=== PATIENT | female | born 1990 | race Caucasian/White ===

== ENCOUNTER 2019-01-09 11:07 | Inpatient (IN) ==
[2019-01-09] MEDS ORDERED: G.I. COCKTAIL PO ONE (11:49)
[2019-01-09] MEDS ORDERED: NS 1,000 ML IV ONE (11:49)
[2019-01-09] MEDS ORDERED: ZOFRAN IV ONE (11:49)
[2019-01-09] MEDS ORDERED: PROTONIX IV ONE (11:49)
[2019-01-09] MEDS ORDERED: SODIUM CHLORIDE 0.9% INJ ONE ×2 (11:50→12:54)
[2019-01-09 11:51] LABS: BASO# 0.03 X1000 (0.0-0.2); BASO% 0.5 % (0.0-0.8); EOS# 0.18 X1000 (0.0-0.7); EOS% 2.9 % (0.0-10.0); HEMATOCRIT 49.5 % (37.0-47.0); HEMOGLOBIN 16.4 g/dL (12.0-16.0); LYMPH# 1.61 X1000 (1.2-3.4); LYMPH% 25.9 % (20.5-51.1); MCH 29.4 PG (27-31); MCHC 33.1 g/dL (33-37); MCV 88.7 FL (81-99); MONO# 0.81 X1000 (0.11-0.59); NEUT# 3.59 X1000 (1.4-6.5); NEUT% 57.7 % (42.2-75.2); PLT 413 X1000 (130-400); RBC 5.58 XMIL (4.2-5.4); RDW 14.3 % (11.5-14.5); WBC 6.22 X1000 (4.8-10.8)
[2019-01-09 12:10] LABS: URINE SOURCE CLEAN CATCH
[2019-01-09 12:13] LABS: BILIRUBIN URINE MODERATE (NEGATIVE); BLOOD URINE NEGATIVE (NEGATIVE); COLOR YELLOW; GLUCOSE URINE NEGATIVE (NEGATIVE); KETONE URINE 40 mg/dL (NEGATIVE); LEUKOCYTES URINE NEGATIVE (NEGATIVE); NITRITE URINE NEGATIVE (NEGATIVE); PROTEIN URINE 100 mg/dL (NEGATIVE); SP GRAVITY URINE 1.027; TURBIDITY URINE HAZY (CLEAR); UROBILINOGEN URINE 4 mg/dL (NORMAL)
[2019-01-09 12:14] LABS: UR EPITHELIAL CELLS >10 /HPF (<10); URINE BACTERIA 1+ /HPF; URINE RBC <10 /HPF (<10)
[2019-01-09 12:21] LABS: AGAP 20; ALB/GLOB RATIO 2.3; ALBUMIN 5.6 g/dL (3.5-5.0); ALKALINE PHOSPHATASE 56 U/L (32-104); BUN 18 mg/dL (8-22); CALCIUM 11.2 mg/dL (8.8-10.2); CHLORIDE 97 mmol/L (98-107); COSMO 283; ESTIMATED GFR > 60; GLUCOSE 101 mg/dL (70-104); GOT 13 U/L (10-30); GPT 8 U/L (10-36); POTASSIUM 4.1 mmol/L (3.5-5.1); SODIUM 141 mmol/L (136-145); TCO2 24 mmol/L (25-35); TOTAL BILIRUBIN 1.07 mg/dL (0.20-1.00)
--- NOTE | 2019-01-09 12:56 | Diag Imaging Result Doc PS360 ---
EXAM: US GB < RUQ (LIMITED) INDICATION: RUQ and epigastric tenderness COMPARISON: None. FINDINGS: There are a few tiny echogenic foci that appear to be adherent to the gallbladder wall exhibiting no shadowing. They probably represent small gallbladder wall polyps. The largest measures up to 4.6 mm. No shadowing stones are identified. There is no evidence of gallbladder wall thickening or pericholecystic fluid. The common bile duct is normal in diameter. Sonographic Almonte's sign was reported to be negative. The liver is grossly unremarkable. Portal venous flow is hepatopetal. The visualized pancreas is unremarkable. The aorta and IVC are grossly unremarkable. The right kidney is grossly unremarkable. IMPRESSION: A few tiny nonshadowing echogenic foci adherent to the gallbladder wall suggesting tiny polyps as described. Unremarkable right upper quadrant ultrasound, otherwise. Electronically signed by Kyaw Davis 01/09/2019 12:54 PM
--- NOTE | 2019-01-09 12:59 | Diag Imaging Result Doc PS360 ---
EXAM: CHEST-2 VIEWS INDICATION: RUQ tenderness, TECHNIQUE: 2 views COMPARISON: 11/12/2018 FINDINGS: The lungs are grossly clear. There is no discrete pleural fluid collection or pneumothorax. The cardiomediastinal silhouette and central vasculature are grossly unremarkable. IMPRESSION: No evidence of acute pathology by plain radiograph. Electronically signed by Kyaw Davis 01/09/2019 12:57 PM
[2019-01-09] MEDS: PROTONIX IV SCH (13:00)
--- NOTE | 2019-01-09 13:33 | PROVIDER DOCUMENTATION ---
This chart was entered by Britt Guerra Scribe, acting as scribe for Makeda Flores MD. HPI-Abdominal Pain/GI Problem - General Chief Complaint: Epigastric Pain Stated Complaint: DR. COOMBS REFERRAL Time Seen by Provider: 01/09/19 11:20 Source: patient, family, RN/MD (dr coombs called and spoke with er dr MCGRATH of pt) Allergies/Adverse Reactions: Patient Allergies Allergy/AdvReac Type Severity Reaction Status Date / Time No Known Allergies Allergy Verified 01/09/19 11:17 Home Medications: Home Medication List Medication Instructions Recorded Confirmed Last Taken Type NK [No Home Medications] 01/09/19 01/09/19 Unknown History - History of Present Illness-ABD Nature of Presenting Problems: 28 yobf presents to the ed with c/o epigastric/RLQ pain acute onset 11/11/18 with n/v. pt has constipation for 5 days. pt on exam is in moderated distress and has severe nausea. pt is tearful and guarding her epigastrium region. pt went to se her pcp this am and was sent to ed for work up. pt father sts has been to 4 er visits since onset and they still feel like they have no true answer. Abdominal Pain Onset Location: reports: epigastric Pain Radiation: reports: RLQ Quality of Pain: reports: aching, burning, dull Severity in ED: reports: severe Onset/Duration: reports: other (original onset 11/11/18 but this episode ahs been for 1 week) Timing: reports: still present, intermittent, getting worse Activities at Onset: reports: light activity Exposure to sick contacts?: No Modifying Factors: worse with: eating, lying down, palpation, vomiting Associated Symptoms: reports: constipation, headaches, loss of appetite, nausea, vomiting. denies: back/neck pain, diarrhea, fever/chills, shortness of breath Last BM: 5 days ago Dark Stools Present?: reports: none noticed Rectal Bleeding: reports: none # of Diarrhea Episodes: 0 Rectal Pain: reports: none # of Vomiting Episodes: 2 Bruising or Bleeding Gums?: No Similar Symptoms Previously?: Yes Recently seen or treated by another doctor?: Yes (bernarda PCP and x4 ed visits) Review of Systems - Adult - REVIEW OF SYSTEMS - ADULT ROS:: ROS per family (father helps pt) Constitutional: denies: chills, fever Eyes: reports: no symptoms reported Ears, Nose, Mouth & Throat: reports: no symptoms reported Cardiovascular: denies: chest pain, palpitations Respiratory: denies: cough, shortness of breath, wheezing Gastrointestinal: reports: see HPI, abdominal pain, constipation, nausea, poor appetite, vomiting. denies: difficulty swallowing, rectal bleeding Genitourinary: denies: dysuria, frequent UTI's Musculoskeletal: denies: back pain, neck pain Integumentary: reports: no symptoms reported Neurological: reports: see HPI, headache/migraines. denies: dizziness/vertigo Psychiatric: reports: no symptoms reported Endocrine: reports: no symptoms reported Hematologic/Lymphatic: reports: no symptoms reported Allergic/Immunologic: reports: no symptoms reported All Other Systems: Reviewed and Negative Past History - Adult - PAST MEDICAL HISTORY-ADULT Review of Records: reports: Old Records Reviewed, Nursing Assessment Review, Medications Reviewed, Social history reviewed & non-contributory. Major Childhood Illnesses: reports: denies history Cardiovascular: reports: denies history Respiratory: reports: denies history Gastrointestinal: reports: denies history Obstetrical/Gynecological: reports: denies history Genitourinary: reports: denies history Musculoskeletal: reports: denies history Neurological: reports: denies history Endocrine/Immune: reports: denies history Other Conditions: reports: denies history - PRIOR SURGERIES/PROCEDURES Surgical/Procedure History: reports: none - IMMUNIZATION STATUS Childhood Immunizations: See Nurse Assessment Flu Vaccine: See Nurse Assessment - FAMILY HISTORY Family History: reviewed, not pertinent - SOCIAL HISTORY Smoking: quit greater than 1 year Substance Use: denies Alcohol Use Frequency: never Living Situation: family Physical Exam-General - PHYSICAL EXAM-ADULT Initial Vital Signs Reviewed: Yes - CONSTITUTIONAL General Appearance: appears well, alert, moderate distress, thin - EYES Eyes: PERRL/EOMI, pale conjunctivae - HEAD, EARS, NOSE, MOUTH & THROAT HENMT: negative: moist mucous membranes - NECK Neck: non-tender, full range of motion, supple - RESPIRATORY Respiratory: chest non-tender, lungs clear, normal breath sounds - CARDIOVASCULAR Cardiovascular: normal peripheral pulses, regular rate, rhythm - GASTROINTESTINAL (ABDOMEN) Abdominal Exam: soft, guarding, tenderness (RLQ and epigastric), Almonte's sign. negative: distended - LYMPHATIC Lymphatic: no adenopathy - MUSCULOSKELETAL Back Exam: normal inspection, no CVA tenderness, no vertebral tenderness Extremity: normal range of motion, non-tender, normal inspection, normal capillary refill - SKIN Integumentary: normal color, normal turgor, warm/dry - NEUROLOGIC Neurologic: grossly normal - PSYCHIATRIC Psych/Mental Status: normal mood/affect, normal thought content, normal thought process, oriented x 3 Progress - PLAN OF CARE/RESULTS Progress/Plan/Lab Results: Vital Signs - 8 hr 01/09/19 11:12 Temperature 97.5 F L Pulse Rate 95 H Respiratory Rate 18 Blood Pressure 111/86 O2 Sat by Pulse Oximetry 98 Orders Category Date Time Status CHEST-2 VIEWS [RAD] Stat Exams 01/09/19 11:12 Ordered CBC WITH ELECTRONIC DIFF [HEME] Stat Lab 01/09/19 11:40 Ordered COMPREHENSIVE METABOLIC PANEL [CHEM] Stat Lab 01/09/19 11:40 Ordered D-DIMER [COAG] Stat Lab 01/09/19 11:40 Ordered TROPONIN T Stat Lab 01/09/19 11:40 Ordered UA NIMS W/REFLEX CULT [URINALYSIS] Stat Lab 01/09/19 11:11 Uncollected Result Diagrams: 01/09/19 11:38 01/09/19 11:38 - REASSESSMENT Reassessment #1 Time Reassessed: 12:55 (sx unchanged GI at [facility] with ED physcian) Status: unchanged (was at bedside and spoke with GI dr cheng.would like pt admitted to [facility] and will see GI tomorrow) - EKG 1 Time of EKG reading by physician:: 12:08 EKG Read and Signed by:: Makeda Flores EKG Interpretation (*Must complete 3 of following elements*): Normal (borderline) Rate: 85 Rhythm: nsr [place]: normal QRS: normal IA Interval: normal ST Wave: normal Comments: right atrial enlargement - XRAY 1 XRAY: Bilateral XRAY Study: Chest Impression: See EMR Report - ULTRASOUND (By Radiology) 1 US Study: Gallbladder Impression: See EMR Report (EXAM: US GB < RUQ (LIMITED) INDICATION: RUQ and epigastric tenderness COMPARISON: None. FINDINGS: There are a few tiny echogenic foci that appear to be adherent to the gallbladder wall exhibiting no shadowing. They probably represent small gallbladder wall polyps. The largest measures up to 4.6 mm. No shadowing stones are identified. There is no evidence of gallbladder wall thickening or pericholecystic fluid. The common bile duct is normal in diameter. Sonographic Almonte's sign was reported to be negative. The liver is grossly unremarkable. Portal venous flow is hepatopetal. The visualized pancreas is unremarkable. The aorta and IVC are grossly unremarkable. The right kidney is grossly unremarkable. IMPRESSION: A few tiny nonshadowing echogenic foci adherent to the gallbladder wall suggesting tiny polyps as described. Unremarkable right upper quadrant ultrasound, otherwise. Electronically signed by Kyaw Davis 01/09/2019 12:54 PM 01/09/19 1254 Interp reting Physician: Kyaw Davis MD Dictated Date/Time: 01/09/19 1249 cc: Makeda Flores MD; Chase Coombs Jr, MD) - CONSULTS/PCP/HOSPITALIST Notification #1 *Consult/PCP/Hospitalist*: hospitalist Time Discussed: 13:35 Consult Disposition: Admit #2 Consult: dr Cheng Consult Disposition: other (was at bedside, advised admission to hospitalist. Will consider Upper GI endoscopy if US gall bladder normal) Departure - Departure Date of Disposition Decision: 01/09/19 Time of Disposition Decision: 15:45 DIAGNOSIS: Abdominal pain, Epigastric pain, Nausea and vomiting Disposition: ADMITTED INPATIENT 09 Certified Medical Emergency: Emergent Condition: Stable - Critical Care Note This patient required my direct & personal management of CC.: No Attestation - Physician/ BRENDAN Attestation Patient care was provided by Advanced Practice Provider:: No The physician spent face to face time with patient:: Yes Advanced Practice Provider documentation review:: Supervising physician onsite and consulted in the evaluation and care of this patient. The physician did have a face to face encounter with the patient. This chart was documented by the indicated scribe, (Britt Guerra Scribe) and accurately reflects the services I performed and decisions made by me, Makeda Flores MD, as attested by the provider's signature.
[2019-01-09] MEDS ORDERED: TYLENOL PO PRN (14:03)
[2019-01-09] MEDS ORDERED: ZOFRAN IV PRN (14:03)
--- NOTE | 2019-01-09 15:04 | EKG Report ---
Test Performed on : 01/09/2019 12:08:16 PM Test Reason : ED. No order in [place] Blood Pressure : / mmHG Vent. Rate : 085 BPM Atrial Rate : 085 BPM P-R Int : 116 ms QRS Dur : 076 ms QT Int : 350 ms P-R-T Axes : 080 070 057 degrees QTc Int : 416 ms Normal sinus rhythm. Right atrial enlargement Borderline ECG No previous ECGs available Unconfirmed Result
[2019-01-09] MEDS: NS 1,000 ML IV SCH (16:55)
--- NOTE | 2019-01-09 20:18 | HISTORY AND PHYSICAL ---
PRIMARY CARE PROVIDER: No one. Saw Dr. Pena in the office today. CHIEF COMPLAINT: Epigastric abdominal burning and pain. HISTORY OF PRESENT ILLNESS: Ms. aYni Cole is a 28-year-old female, with a medical history of recent vaginal delivery about 4 or 5 months ago. She states for at least 3 months, she has developed burning in the epigastric region, and over the last 7 days she has been unable to eat, keep anything down, no liquids or anything. She said she is a vegetarian. She is attempted at removing all gluten from her diet as well. She has used peppermint oil to try and subside the nausea and for some pain relief. She has noted a 40 pound weight loss in the last 3 months, so she called around. She found out Dr. Pena is accepting patients, and so she went to see him today, who then sent her to the emergency department for admission overnight and an EGD for in the morning. Of note, she has also stated that with her dehydration and everything, she has not had a bowel movement in the last 5 days, but prior to that she normally has a bowel movement on a daily basis. Abdominal assessment is soft. She is tender in the epigastric region, but she is hyperactive in her bowel sounds. PAST MEDICAL HISTORY: 1. Anxiety. 2. GERD. 3. Vaginal delivery 5 months ago. SURGICAL HISTORY: None. SOCIAL HISTORY: She started smoking at the age of 23. She stopped smoking December 2017 when she found out she was , and she only smoked 1 to 2 cigarettes per day. Alcohol: None in the last 5 months, but prior to that she would drink 1 to 2 glasses of red wine per week. She denied any illicit drug use. She lives with her father and her little boy also lives with them. She just graduated [employer] in 2016 with a [employer] degree. 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 FAMILY HISTORY: Mother had ovarian cancer. Father, no medical conditions. ALLERGIES: No known drug allergies. HOME MEDICATIONS: None. REVIEW OF SYSTEMS: She did note that she has had foul smelling urine and burning with urination. She does not have urinary frequency. A 14 point review of systems are complete and all are negative except for those mentioned above in HPI. The emesis that she has been having has been clear in color. There is no blood noted in it. PHYSICAL EXAMINATION: VITAL SIGNS: Temperature 97.5 degrees, heart rate 75, respiratory rate 18, blood pressure 111/90, O2 saturation 100% on room air. She is 5 feet 3 inches tall, 115 pounds, with a BMI of 20.4. GENERAL: Ms. Yani Cole is a 28-year-old female. She is in no acute distress. She is able to answer questions appropriately. HEENT: Atraumatic, normocephalic. Pupils equal, round, reactive to light. Extraocular movements intact. Mucous membranes are dry. NECK: Trachea midline. CARDIOVASCULAR: S1, S2. Regular rate and rhythm. No rubs, gallops, murmurs. No lower extremity edema. +2 dorsalis and radial pulses. Negative JVD or carotid bruits. PULMONARY: Clear to auscultate. Bilateral breath sounds. No accessory muscle use or work of breathing noted. GI: Soft. Tender in the epigastric region. Hyperactive bowel sounds. EXTREMITIES: Moves all extremities equally. Full range of motion. NEUROLOGIC: Alert and oriented x3. Follows commands. Sensory is intact. SKIN: Warm, dry, intact. LABORATORY DATA: White blood cells 6000, hemoglobin 16, hematocrit 49, platelet count 413,000. D- dimer 0.36. Sodium 141, potassium 4.1, BUN 18, creatinine is 1.0, glucose 101, calcium 11.2, bilirubin is 1.07, AST 13, ALT 8. Troponin less than 0.01. Albumin is 5.6. Urinalysis: 100 protein, 40 ketones, moderate bilirubin, 10 to 20 white blood cells, 1+ bacteria. IMAGING: Chest x-ray: No evidence of acute pathology. Abdominal ultrasound: A few tiny nonshadowing echogenic foci adherent to the gallbladder wall, suggesting tiny polyps as described. Was negative for Almonte sign. EKG: Normal sinus rhythm, rate 85, QTc is 416. ASSESSMENT AND PLAN: 1. Intractable nausea and vomiting with epigastric abdominal pain, followed by Dr. Pena. Plan for esophagogastroduodenoscopy tomorrow. She has had a GI cocktail ordered, intravenous Protonix ordered, Carafate ordered. 2. Dehydration, secondary to intractable nausea, vomiting. She will get intravenous fluid hydration. 3. Gastroesophageal reflux disease. Again, she is on a proton pump inhibitor. 4. Complaints of urinary tract infection symptoms. The culture is pending. The urinalysis does have a small amount of white blood cells and 1+ bacteria. It is noted that she had a vaginal delivery about 5 months ago. White count is actually normal, but she is symptomatic, so may add an antibiotic to that and follow up on the culture. 5. Constipation. A soapsuds enema has been ordered. She has been started on MiraLAX. 6. There is some question as to whether there may be some anorexia involved, but she needs to have evaluation to see if this is more of a peptic ulcer disease type situation. 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 She likes to take in natural substances. She is more holistic in her approach, but she has had a 40 pound weight loss in the last 3 months. She states she has also attempted to remove gluten from her diet as well. 7. Deep venous thrombosis prophylaxis. Sequential compression devices. Dictated by DANIEL Bang for Ricardo Phipps MD Addendum: Patient seen and examined by myself. Agree with DANIEL note. It reflects my assessment and plan. Patient is being admitted to hospital for intractable nausea and vomiting. Will do EGD tomorrow as per GI and will go from there. cc: DANIEL Bang MD [facility] HOSPITALYasmeen
[2019-01-09] MEDS: CARAFATE LIQUID PO SCH (21:43)
[2019-01-10] MEDS: CARAFATE LIQUID PO SCH ×2 (01:26→12:17)
[2019-01-10] MEDS: PROTONIX IV SCH (01:41)
[2019-01-10] MEDS: NS 1,000 ML IV SCH ×2 (01:48→12:17)
[2019-01-10 05:28] LABS: BASO# 0.03 X1000 (0.0-0.2); BASO% 0.7 % (0.0-0.8); EOS# 0.38 X1000 (0.0-0.7); EOS% 8.3 % (0.0-10.0); HEMATOCRIT 35.2 % (37.0-47.0); HEMOGLOBIN 11.4 g/dL (12.0-16.0); LYMPH# 1.97 X1000 (1.2-3.4); LYMPH% 43.1 % (20.5-51.1); MCH 29.2 PG (27-31); MCHC 32.4 g/dL (33-37); MCV 90.3 FL (81-99); MONO# 0.49 X1000 (0.11-0.59); MONO% 10.7 % (1.7-9.3); MPV 9.1 FL (7.4-10.4); NEUT% 37.2 % (42.2-75.2); PLT 262 X1000 (130-400); RDW 13.5 % (11.5-14.5); WBC 4.57 X1000 (4.8-10.8)
[2019-01-10 05:30] LABS: INR 1.13; PROTIME 14.7 Seconds (11.0-16.0)
[2019-01-10 05:31] LABS: PTT 32.1 Seconds (22.3-41.8)
[2019-01-10 05:49] LABS: HEMOGLOBIN A1C 5.4 % (4.8-6.0)
[2019-01-10 05:54] LABS: PTH INTACT 14 pg/mL (16-65)
[2019-01-10 05:55] LABS: FREE T4 1.32 ng/dL (0.93-1.70); TSH 2.58 uIUmL (0.27-4.20)
[2019-01-10 06:16] LABS: AGAP 14; ALB/GLOB RATIO 2.5; ALBUMIN 3.7 g/dL (3.5-5.0); ALKALINE PHOSPHATASE 38 U/L (32-104); BUN 15 mg/dL (8-22); CALCIUM 9.3 mg/dL (8.8-10.2); CHLORIDE 107 mmol/L (98-107); COSMO 283; CREATININE 0.8 mg/dL (0.5-0.9); ESTIMATED GFR > 60; GLUCOSE 91 mg/dL (70-104); GOT 9 U/L (10-30); GPT 5 U/L (10-36); MAGNESIUM 1.5 mg/dL (1.5-2.7); PHOSPHORUS 3.8 mg/dL (2.7-4.5); POTASSIUM 3.2 mmol/L (3.5-5.1); SODIUM 142 mmol/L (136-145); TCO2 21 mmol/L (25-35); TOTAL BILIRUBIN 1.29 mg/dL (0.20-1.00); TOTAL PROTEIN 5.2 g/dL (6.3-8.3)
--- NOTE | 2019-01-10 06:39 | GASTROENTEROLOGY CONSULTATION ---
DATE: 01/09/2019 REQUESTING PHYSICIAN: Ricardo Phipps MD REASON FOR CONSULTATION: Abdominal pain. HISTORY OF PRESENT ILLNESS: Ms. Cole is a 28-year-old female who was sent to the ER today by Dr. Pena. Dr. Pena saw the patient today, but the patient was in an extreme amount of pain in the epigastric region. Dr. Pena was concerned about a possible cholecystitis. She was sent to the ER. I saw the patient in the ER. On presentation, the patient had just come ultrasound. Ultrasound report was reviewed, which showed possible gallbladder polyp without cholecystitis. Prior to this admission, the patient was in the ER 2 weeks ago when she had a CT scan done on 12/25/2018, which showed evidence of: 1. Tiny hepatic and renal cysts. 2. Trace fluid in the pelvis. No inflammation was noted about the appendix. 3. No bowel obstruction. No free air was noted. 4. There are multiple small bilateral ovarian cysts noted. She also had abdominal x-ray at that time on 12/25/2018 which showed moderate amount of retained fecal debris in the colon suggesting constipation. There was no free air identified. There was evidence of mild S-shaped thoracolumbar scoliosis noted. The patient had a recent and she has a 5-month-old boy she is currently breast-feeding. She complains of feeling very dry and dehydrated and thirsty on presentation. She points to epigastric area with severe pain and cramps, which was the main reason for presentation to see a GI doctor. She does complain of some nausea and vomiting off and on since November 2018. She has had constipation for the last 1 week. Her last bowel was for 5 days ago. Gastroenterology was consulted for further management. The patient will be admitted to the hospital under the hospitalist and we will continue the workup as an inpatient. ALLERGIES: No known drug allergies. PAST MEDICAL HISTORY: Constipation and having a baby 5 months ago. Currently breast- feeding. FAMILY HISTORY: Noncontributory. SOCIAL HISTORY: She has a very supportive father present at bedside. She quit smoking more than a year ago. She denies history of substance abuse. Denies any history of alcohol abuse. She lives with family. REVIEW OF SYSTEMS: Denies chills, chest pain, shortness of breath, dyspnea. Denies any vomiting blood or passing blood in the stools. She complains of constipation, nausea, and abdominal pain. She denies any other neurological complaints. MEDICATIONS AT HOME.: None. MEDICATIONS IN THE HOSPITAL: She was given Tylenol, Zofran, Protonix twice daily, MiraLAX once daily and she is on IV fluids 127 per hour on Carafate 1 g 6 hours. She is currently on a clear liquid diet. PHYSICAL EXAMINATION: Vital signs: Temperature 98.1 degrees, pulse of 92, respiratory 16, blood pressure 116/75, saturating 98% room air. Body weight of 52.163 kg and BMI 20.4 kg. General: Moderately nourished male lying in bed in distress secondary to abdominal pain. HEENT: No pallor. No icterus. Pupils equal and reactive. Neck: Supple. Abdomen: Discomfort in the epigastrium region. No rebound. No guarding. Extremities: No cyanosis. Neurologic: She is alert, awake, oriented. LABORATORIES: Hemoglobin and hematocrit are 16.4 and 49.5, white count of 6.2, platelet count of 413,000, MCV 83 Sodium 141, potassium 4.1, chloride 97, bicarb 24, anion gap of 20, BUN of 18, creatinine 1, calcium is 11.2, total bilirubin is 1.07. AST 13, ALT 8. Alkaline phosphatase is 56. Total protein is 8. Albumin of 5.6. Urinalysis showing positive protein, positive ketones, moderate bilirubin, 10 to 20 white cells. Urine culture is currently pending. Ultrasound of the abdomen showed 2 tiny non-shadowing, echogenic foci adherent to the bladder wall suggesting tiny polyps as described. The largest polyp is 4.6 mm. No gallbladder wall thickening or pericholecystic fluid noted. The liver is unremarkable. Common bile duct is normal in diameter. Portal vein is hepatopetal. CT scan and abdominal x-ray on from 12/25/2018 was described in HPI. IMPRESSION AND PLAN: 1. Abdominal pain, epigastric region. 2. Constipation. 3. Nausea. 4. Dehydration. 5. Possible urinary tract infection. RECOMMENDATIONS: We will continue IV fluids. She will be given proton pump inhibitor. She will continue MiraLAX. We will give her a soapsuds enema while in the ER. We will schedule her for an esophagogastroduodenoscopy tomorrow with Dr. Pena. The risks, benefits, indications, and alternatives to the procedure were discussed the patient and family and all questions answered. The patient is currently breast feeding. So we recommend her to discard the breast milk for the time being while she is in the hospital receiving medications which may include anesthesia medications as well. According to her, her son is on formula feeding as well. We will follow along. The above plans were discussed with the patient and family. All questions answered. Please call with any further questions. Dr. Gallo, thank you for allowing us to participate in the care of this patient. cc: Sharan Cheng MD MTDYasmeen
[2019-01-10] MEDS ORDERED: MIRALAX PO SCH (09:00)
[2019-01-10] MEDS ORDERED: VERSED ONE (09:52)
[2019-01-10] MEDS ORDERED: XYLOCAINE-MPF 2% ONE (10:23)
[2019-01-10] MEDS ORDERED: DIPRIVAN 1% ONE (10:23)
--- NOTE | 2019-01-10 11:25 | ENDOSCOPY OPERATIVE NOTE ---
[facility] ENDOSCOPY OPERATIVE NOTE , PATIENT: Yani Cole ADMISSION DATE: 01/10/2019 [id number] [facility] 1990 [id number] EGD PROCEDURE REPORT PROCEDURE DATE: 01/10/2019 SURGEON: Chase Pena MD STATUS: inpatient PELT DROPPER: PREOPERATIVE DIAGNOSIS: The patient is a 28 yr old female here for an EGD due to epigastric abdomina l pain, iron deficiency anemia, vomiting, and nausea. PROCEDURE PERFORMED: EGD w/ biopsy MEDICATIONS: Per Anesthesia TOPICAL ANESTHETIC: none CONSENT: The patient understands the risks and benefits of the procedure and understands that these r isks include, but are not limited to: sedation, allergic reaction, infection, perforation and/or bleeding. Alternative means of evaluation and treatment include, among others: physical exam, x-rays, and/or surgical intervention. The patient elects to proceed with this endoscopic procedure. HISORY AND PHYSICAL: 01/10/2019 DESCRIPTION OF PROCEDURE: During intra-op preparation period all mechanical and medical equipment was checked for proper function. Hand hygiene and appropriate measures for infection prevention was taken. After the risks, benefits and alternatives of the procedure were thoroughly explained, Informed consent was verified, confirmed and timeout was successfully executed by the treatment team. The patient was anesthetized with topical anesthesia and the GF03-i21 ([id number]) endoscope was introduced through the mouth and advanced to the second portion of the duoden um. Retroflexion was performed in the stomach and revealed a hiatal hernia. The gastroscope was then slowly withdrawn and removed. ESOPHAGUS: A 2 cm hiatal hernia was noted. STOMACH: Two shallow erosions were found in the gastric antrum. A biopsy was performed using cold fo rceps in the gastric antrum and gastric body. Sample sent for histology. DUODENUM: Two ranging between 5-9mm in size non-bleeding and clean-based ulcers (2 ulcers), and one u lcer that had a pigmented spot were found in the duodenal bulb. There was not active bleeding. SPECIMENS REMOVED: Yes ADVERSE EVENTS: There were no complications. POSTOPERATIVE DIAGNOSIS: ESOPHAGUS: A 2 cm hiatal hernia was noted. Z-line was located at 35 cm from incisors. STOMACH: Two shallow erosions were found in the gastric antrum. A biopsy was performed using cold fo rceps in the gastric antrum and gastric body. Sample sent for histology. DUODENUM: Two ranging between 5-9mm in size non-bleeding and clean-based ulcers (2 ulcers), and one u lcer that had a pigmented spot were found in the duodenal bulb. There was not active bleeding. RECOMMENDATIONS: 1. Await biopsy results 2. Advance diet as tolerated Start pantoprazole 40mg PO BID and continue for 3 months Avoid NSAIDs, aspirin, or blood thinners Recommend iron replacement therapy Patient is ok to be discharged from GI perspective with follow-up in 2-4 weeks. REPEAT EXAM: Return in 3 months for EGD. Chase Pena MD eSigned: Chase Pena MD 01/10/2019 11:24 AM cc: PATIENT NAME: Yani Cole MR#: [id number]
[2019-01-10] MEDS: POTASSIUM CHLORIDE 20 MEQ/SWI 20 MEQ/100 ML IVPB IV SCH ×2 (12:17→14:06)
[2019-01-10 16:20] VITALS: BP 124/79
[2019-01-10] MEDS ORDERED: PROTONIX PO SCH (21:00)
--- NOTE | 2019-01-11 13:59 | DISCHARGE SUMMARY ---
ADMISSION DATE: 01/09/2019 DISCHARGE DATE: 01/10/2019 DISCHARGE DIAGNOSES: 1. Duodenal ulcers. 2. Intractable nausea and vomiting, resolved. 3. Gastroesophageal reflux disease. 4. Constipation. CONSULTATION: Dr. Sharan Cheng from GI. PROCEDURES: 1. Chest x-ray done on admission showed no evidence of acute pathology by plain radiograph. 2. Endoscopy procedure EGD showed two ranging between 5 to 9 mm in size, no bleeding on clean base of ulcers. One ulcer had pigmented spot that was found in the duodenal bulb; there was no active bleeding found. HOSPITAL COURSE: This is a 28-year-old female with past medical history of recent vaginal delivery about 4 to 5 months ago. She reports that she started burning in the epigastric area with intractable nausea and vomiting. The patient was sent from Dr. Pena's office because of this condition. She was admitted to the hospital. Labs showed no gross abnormality. She was scoped with results as above. So, from GI standpoint they cleared this patient to be discharged today. Will be on medication. She is going to be seen in 2 to 4 weeks in the office. DISCHARGE PHYSICAL EXAMINATION: Vital signs: Temperature 98.0 degrees, heart rate 78, respiratory rate 18, blood pressure 122/56, O2 saturation 98% on room air. General examination: This is a 28-year-old female lying in bed in no acute distress. Cardiovascular exam: S1, S2 heard. No murmurs, gallops, or rubs. Regular rate and rhythm. Respiratory exam: Clear bilaterally to auscultation. No work of breathing or using accessory muscles. Abdomen: Soft. Nontender to palpation. Bowel sounds present. No organomegaly. Extremities: No clubbing cyanosis or edema. Peripheral pulses present in both legs. Neurological exam: The patient is alert and oriented x3. Moves all four extremities. DISCHARGE DISPOSITION: Home to self-care. LIST OF MEDICATIONS: 1. Protonix 40 mg p.o. b.i.d. 2. Sucralfate 1 g p.o. q. 6 hours. 3. Icar C Plus tablet, 1 tablet p.o. b.i.d. FOLLOW UP: Follow up with Dr. Pena in the office in 2 to 4 weeks. cc: Ricardo Phipps MD
== END 2019-01-10 16:51 | disposition home or self-care (01) | DRG 384 ==
LOC: ED 11:07 → EDIPHOLD 14:42 → 1N 16:48
PROVIDERS: ATTEND Internal Medicine